=== PATIENT | male | born 1980 | race Caucasian/White ===

== ENCOUNTER 2016-06-05 05:52 | Emergency (ER) | payer MEDICARE ==
[~2016-06-05] VITALS: Ht 185.4 cm; Wt 109.3 kg
[~2016-06-05 05:52] MED LIST: ALBU18HF IH; METF500T4 PO
[2016-06-05] MEDS ORDERED: ACETAMINOPHEN 500 MG TABLET PO ONE (06:30)
[2016-06-05 06:38] VITALS: BP 129/88
--- NOTE | 2016-06-05 09:12 | RAD ---
HAND RIGHT 3V Clinical Indication: Punching injury to right hand, pain and swelling Comparison: None. Technique: Frontal, oblique and lateral views of the right hand are obtained. Findings: No acute fracture or dislocation is seen. Joint spaces are maintained. Surrounding soft tissues demonstrate no acute finding. IMPRESSION: No acute osseous injury seen.
--- NOTE | 2016-06-05 11:47 | ED.ADGEN ---
Past History Past Medical History: Anxiety, Asthma, Bipolar, Depression, Diabetes Past Surgical History: No Surgical History Alcohol Use: None Drug Use: None Social History Narrative: Lives home with Adult General [facility] HPI Patient is a 36-year-old male presents emergency department complaining of right hand pain. Patient has had this pain since yesterday. He states that he punched a door with his hand. He is left-hand dominant. He has had no prehospital intervention. Review of Systems Review of Systems Constitutional: Denies fever or chills [] Eyes: Denies change in visual acuity, redness, or eye pain [] HENT: Denies nasal congestion or sore throat [] Respiratory: Denies cough or shortness of breath [] Cardiovascular: No additional information not addressed in HPI [] GI: Denies abdominal pain, nausea, vomiting, bloody stools or diarrhea [] : Denies dysuria or hematuria [] Musculoskeletal: Denies back pain or joint pain [] Integument: Denies rash or skin lesions [] Neurologic: Denies headache, focal weakness or sensory changes [] Endocrine: Denies polyuria or polydipsia [] Current Medications Current Medications Current Medications Medications (Trade) Dose Ordered Sig/Genet Start Time Stop Time Status Last Admin Dose Admin Acetaminophen (Tylenol) 1,000 mg 1X ONCE 06/05/16 06:30 06/05/16 06:31 DC 06/05/16 06:18 1,000 MG Allergies Allergies Allergies Coded Allergies Type Severity Reaction Last Updated Verified aspirin Allergy Intermediate 01/04/16 Yes Physical Exam Physical Exam Constitutional: Well developed, well nourished, no acute distress, non-toxic appearance. [] HENT: Normocephalic, atraumatic, bilateral external ears normal, oropharynx moist, no oral exudates, nose normal. [] Eyes: PERRLA, EOMI, conjunctiva normal, no discharge. [] Neck: Normal range of motion, no tenderness, supple, no stridor. [] Cardiovascular:Heart rate regular rhythm, no murmur [] Lungs & Thorax: Bilateral breath sounds clear to auscultation [] Abdomen: Bowel sounds normal, soft, no tenderness, no masses, no pulsatile masses. [] Skin: Warm, dry, no erythema, no rash. [] Extremities: Tenderness and swelling to the dorsum of his right hand, range of motion is intact, neurovascularly intact. [] Neurologic: Alert and oriented X 3, normal motor function, normal sensory function, no focal deficits noted. [] Psychologic: Affect normal, judgement normal, mood normal. [] Current Patient Data Vital Signs Vital Signs Date Time Temp Pulse Resp B/P Pulse Ox O2 Delivery O2 Flow Rate FiO2 06/05/16 06:38 81 20 129/88 97 Room Air 06/05/16 06:07 98.7 97 EKG EKG [] Radiology/Procedures Radiology/Procedures [] Course & Med Decision Making Course & Med Decision Making Pertinent Labs and Imaging studies reviewed. (See chart for details) Reassuring x-ray. Patient was placed in a Velcro wrist splint for comfort. He is also given port of care and follow-up instructions. [] Final Impression Final Impression Hand contusion [] Problems: Dragon Disclaimer Dragon Disclaimer This electronic medical record was generated, in whole or in part, using a voice recognition dictation system. MARYJANE LOPEZ MD Jun 05, 2016 11:47
== END 2016-06-05 06:38 | disposition home or self-care (01) ==
LOC: ER 05:52
DX: S60.221A Contusion of right hand, initial encounter (principal); J45.909 Unspecified asthma, uncomplicated; E11.9 Type 2 diabetes mellitus without complications; Z88.6 Allergy status to analgesic agent; W22.8XXA Striking against or struck by other objects, initial encounter; Y93.89 Activity, other specified; Y99.8 Other external cause status; Y92.89 Other specified places as the place of occurrence of the external cause
CPT/HCPCS: 29125; 73130; 99284-25

== ENCOUNTER 2017-04-28 18:09 | Emergency (ER) | payer MEDICARE ==
[~2017-04-28] VITALS: Ht 185.4 cm; Wt 109.3 kg
[2017-04-28 18:19] VITALS: BP 11/83
--- NOTE | 2017-04-28 19:07 | PHYS DOC ---
Past History Past Medical History: Anxiety, Asthma, Bipolar, Depression, Diabetes Past Surgical History: No Surgical History Alcohol Use: None Drug Use: None Adult General Chief Complaint Chief Complaint: HAND PROBLEM HPI HPI Patient is a 36-year-old male who comes in complaints of hand and wrist pain on the left side after falling at home. Patient states he tried to break the fall by using his left. Patient denies any other injuries, has no other complaints. Review of Systems Review of Systems Constitutional: Denies Eyes: Denies injury HENT: Denies injury Cardiovascular: No pain or injury GI: Denies abdominal pain or injury Musculoskeletal: As per history of present illness Integument: Denies rash or skin lesions [] Neurologic: Denies headache, focal weakness or sensory changes [] All other systems were reviewed and found to be within normal limits, except as documented in this note. Allergies Allergies Allergies Coded Allergies Type Severity Reaction Last Updated Verified aspirin Allergy Intermediate 01/04/16 Yes Physical Exam Physical Exam Constitutional: Well developed, well nourished, no acute distress, non-toxic appearance. [] HENT: Normocephalic, atraumatic, Eyes: EOMI, conjunctiva normal, no discharge. [] Neck: Normal range of motion, no tenderness, trachea midline Cardiovascular: Normal perfusion Lungs & Thorax: No Tachypnea Abdomen: No pain or tenderness or distention Skin: Warm, dry, no erythema, no rash. No bruising, no ecchymosis Back: No tenderness, normal range of motion Extremities: No tenderness, no cyanosis, no clubbing, ROM intact, no edema. No deformity, no swelling Neurologic: Alert and oriented X 3, normal motor function, normal sensory function, no focal deficits noted. [] Psychologic: Affect normal, judgement normal, mood normal. [] Current Patient Data Vital Signs Vital Signs Date Time Temp Pulse Resp B/P (MAP) Pulse Ox O2 Delivery O2 Flow Rate FiO2 04/28/17 18:19 98.2 86 18 99 Room Air EKG EKG [] Radiology/Procedures Radiology/Procedures Preliminary x-ray films no signs of trauma or dislocation or fracture[] Course & Med Decision Making Course & Med Decision Making Pertinent Labs and Imaging studies reviewed. (See chart for details) [] Dragon Disclaimer Dragon Disclaimer This electronic medical record was generated, in whole or in part, using a voice recognition dictation system. Departure Departure: Impression: Primary Impression: Contusion, hand Additional Impression: Wrist injury Disposition: HOME, SELF-CARE Condition: STABLE Referrals: PCP,NO (PCP) This follow with your doctor or one of the clinics in the list provided to you for follow-up and reevaluation within 1 week if your symptoms persist. Please be aware that the x-ray done today is preliminary and an if new findings I discovered he will get a phone call. Please use ibuprofen and/or Tylenol for pain control Patient Instructions: Contusion, Cryotherapy Problem Qualifiers Jose GUILLAUME MD Apr 28, 2017 19:07
--- NOTE | 2017-04-29 08:44 | RAD ---
Left wrist 3 views. History: Left wrist pain 3 views were taken of the left wrist. There is not evidence of an acute fracture or osseous abnormality. Impression: 1. Negative left wrist.
--- NOTE | 2017-04-29 08:45 | RAD ---
Left hand 3 views. History: Left hand pain 3 views were taken of the left hand. There is not evidence of an acute fracture or osseous abnormality. Impression: 1. Negative left hand.
== END 2017-04-28 19:17 | disposition home or self-care (01) ==
LOC: ER 18:09
DX: S60.222A Contusion of left hand, initial encounter (principal); S69.92XA Unspecified injury of left wrist, hand and finger(s), initial encounter; J45.909 Unspecified asthma, uncomplicated; E11.9 Type 2 diabetes mellitus without complications; F41.9 Anxiety disorder, unspecified; F31.9 Bipolar disorder, unspecified; Z88.6 Allergy status to analgesic agent; W19.XXXA Unspecified fall, initial encounter; Y93.89 Activity, other specified; Y99.8 Other external cause status; Y92.89 Other specified places as the place of occurrence of the external cause
CPT/HCPCS: 73110; 73130; 99284

== ENCOUNTER → 2017-08-24 | Outpatient (CLI) | payer MEDICARE ==
[~2017-08-24] MED LIST changes: -METF500T4 PO; +METF500T5 PO
--- NOTE | 2017-08-24 15:43 | RAD ---
Left hand and forearm radiograph 08/24/2017 INDICATION: Pain after smashing arm. Pain from middle finger radiating to the elbow. COMPARISON: Left hand radiograph April 28, 2017. TECHNIQUE: 3 views the left hand and 2 views of the left forearm are provided. FINDINGS: There is no acute fracture or dislocation. Bone mineralization is within normal limits. Joint spaces are maintained. Regional soft tissues are within normal limits. There is no soft tissue gas or osseous erosion. IMPRESSION: No acute fracture or dislocation involving the left hand and forearm. Electronically signed by: Kristin Nicole MD (08/24/2017 3:40 PM) [facility]
== END | disposition home or self-care (01) ==
LOC: PMG 15:13
PROVIDERS: ATTEND Family Medicine
DX: S69.92XA Unspecified injury of left wrist, hand and finger(s), initial encounter (principal); E11.9 Type 2 diabetes mellitus without complications; G43.909 Migraine, unspecified, not intractable, without status migrainosus; J44.9 Chronic obstructive pulmonary disease, unspecified; X58.XXXA Exposure to other specified factors, initial encounter; Y93.89 Activity, other specified; Y92.89 Other specified places as the place of occurrence of the external cause; Y99.8 Other external cause status
CPT/HCPCS: 73090; 73130

== ENCOUNTER → 2017-10-16 | Outpatient (CLI) | payer MEDICARE ==
--- NOTE | 2017-10-16 13:25 | RAD ---
CT of the head without contrast, 10/16/2017: HISTORY: Bilateral leg weakness, frequent falls The ventricles are within normal limits in size. There is no shift of the midline structures. There is no evidence of acute intracranial hemorrhage or mass effect. IMPRESSION: No acute intracranial abnormality is detected. Electronically signed by: Naman Antonio MD (10/16/2017 1:22 PM) [facility]
== END | disposition home or self-care (01) ==
LOC: PMG 12:39
PROVIDERS: ATTEND Family Medicine
DX: R42 Dizziness and giddiness (principal); R53.1 Weakness; I25.2 Old myocardial infarction; E11.9 Type 2 diabetes mellitus without complications; J44.9 Chronic obstructive pulmonary disease, unspecified; G43.909 Migraine, unspecified, not intractable, without status migrainosus; Z88.6 Allergy status to analgesic agent
CPT/HCPCS: 70450